=== PATIENT | male | born 1980 | race American Indian/Alaskan Native ===

== ENCOUNTER 2017-02-27 10:40 | Emergency (ER) | payer MEDICAID ==
[2017-02-27 11:38] VITALS: BP 123/70
[2017-02-27] MEDS ORDERED: NACL 0.9% 1000 ML 1,000 ML IV ONE (12:18)
[2017-02-27] MEDS ORDERED: VALIUM IV ONE (12:19)
--- NOTE | 2017-02-27 12:48 | Emergency Department Report ---
HPI - General Chief Complaint: GI Bleed Time Seen by Provider: 02/27/17 12:20 - HPI HPI: This is a 36-year-old Afro-[place] male presents to the emergency department from home with 2 different complaints. The patient has been having a 2-3 day history of bright red blood per rectum. He says it feels like it is on fire when he uses the bathroom but there is blood both with bowel movements and sometimes without. He also complains of a 2 to three-day history of pain to the entire right leg appears to start in the lower to mid back and radiates down towards the foot. It feels like it is very "tight." He says that the pain worsened significantly when he tries to stand up straight. He says he had some intermittent numbness to the right leg. He denies any problems with bowel or bladder. He has a past medical history of orthopedic surgery to the right leg from a fracture. He tried some Aleve for his discomfort without any relief. He denies any fever, dysuria, nausea, vomiting, chest pain or shortness of breath. No recent travel or sick contacts at home. He does not have a primary care doctor. ED Past Medical Hx - Past Medical History Previous Medical History?: No Hx Psychiatric Treatment: Yes (PTSD, bipolar, Schizo) - Surgical History Past Surgical History?: No - Social History Smoking Status: Never Smoker Substance Use Type: None - Medications Home Medications: Home Medications Medication Instructions Recorded Confirmed Last Taken Type No Known Home Medications [No 02/27/17 02/27/17 Unknown History Reported Home Medications] ED Review of Systems ROS: Stated complaint: BACK PAIN/RECTAL BLEED Other details as noted in HPI Comment: All other systems reviewed and negative Constitutional: denies: chills, fever Eyes: denies: eye pain, eye discharge, vision change ENT: denies: ear pain, throat pain Respiratory: denies: cough, shortness of breath, wheezing Cardiovascular: denies: chest pain, palpitations Gastrointestinal: other (rectal bleeding). denies: abdominal pain, nausea, diarrhea Genitourinary: denies: urgency, dysuria Musculoskeletal: back pain Neurological: numbness Physical Exam - Physical Exam Vital Signs: Vital Signs 02/27/17 11:38 Temperature 97.7 F Pulse Rate 80 Respiratory 18 Rate Blood Pressure 123/70 [Left] O2 Sat by Pulse 99 Oximetry Physical Exam: GENERAL: The patient is well-developed well-nourished. HEENT: Normocephalic. Atraumatic. Extraocular motions are intact. Patient has moist mucous membranes. Pupils equal reactive to light bilaterally. NECK: Supple. Trachea is midline. CHEST/LUNGS: Clear to auscultation. There is no respiratory distress noted. HEART/CARDIOVASCULAR: Regular. There is no tachycardia. There is no gallop rub or murmur. ABDOMEN: Abdomen is soft, nontender. Patient has normal bowel sounds. There is no abdominal distention. SKIN: Skin is warm and dry. RECTAL: Good rectal tone. No gross blood. Stool negative for blood on guaiac testing. NEURO: The patient is awake, alert, and oriented. The patient is cooperative. The patient has no focal neurologic deficits. The patient has normal speech. MUSCULOSKELETAL: There is no tenderness or deformity. There is no limitation range of motion. There is no evidence of acute injury. Muscle strength 5 out of 5 for the lower extremities bilaterally including EHL. PSYCH: Patient is emotionally labile. He is easily angered but also has been seen crying in the room. Unknown if his crying is secondary to his level of discomfort or psychiatric illness. ED Course Vital Signs 02/27/17 11:38 Temperature 97.7 F Pulse Rate 80 Respiratory 18 Rate Blood Pressure 123/70 [Left] O2 Sat by Pulse 99 Oximetry ED Medical Decision Making - Lab Data Result diagrams: 02/27/17 12:29 02/27/17 12:29 - Radiology Data Radiology results: report reviewed Right lower extremity venous Doppler negative for DVT. CT SCAN OF THE LUMBAR SPINE: HISTORY: Low back pain. TECHNIQUE: Contiguous 1.25 mm axial images of the lumbar spine were obtained. Sagittal and coronal reformatted images. FINDINGS: There is normal alignment of the lumbar spine. The body, pedicles and posterior ligaments appear normal. No evidence of fracture or subluxation is seen. The spinal canal appears normal. The prevertebral soft tissues appear normal. IMPRESSION: Unremarkable CT of the lumbar spine. No acute process is noted. Transcribed By: TTR Dictated By: ZUNILDA MARTINS JR, MD Electronically Authenticated By: ZUNILDA MARTINS JR, MD Signed Date/Time: 02/27/17 1257 - Medical Decision Making This is a 36-year-old male who presents to the emergency department with the complaints of pain from the lower right back down the right leg, as well as the complaint of rectal bleeding, both of which that been going on for 2-3 days. Patient's vital signs were stable throughout his ED course. The patient was cursing at the staff even as he was brought back to his room by triage. When he did not feel that he was getting fast enough attention, the patient was able to get a hold of his chart and threw it out of his room into the hallway. This was witnessed by security. After this, the patient through an empty urinal out of the room as well that was witnessed by his nurse, Brigid. Despite these inappropriate actions, I went in to see with the patient needed and to do a history and physical and assessment. The patient has tenderness to palpation along his right lower extremity as well as some tenderness to palpation to the entire lumbar back but there is no step-off deformities. Later on, a rectal exam was done, and there was no lesions or hemorrhoids seen. There was no gross blood in the stool obtained was negative for guaiac testing. Patient's labs were unremarkable did not show an etiology of his symptoms. As soon as I completed my history and physical a CT of the lumbar spine without contrast was ordered, as well as a right lower extremity venous Doppler. The CT of lumbar spine did not show any fracture, malalignment, subluxation or any acute process. The prevertebral tissues appeared normal as well. The lower extremity venous Doppler was negative for any acute DVT. The patient says that he was in excruciating pain and that his muscles felt tight so the patient was ordered IV fluid, IV placement, muscle relaxant/ Valium. However the patient says that he is severely scared of needles and would not allow the IV be placed and asked for oral medication instead. This was granted and the patient was given oral Valium and a Percocet for discomfort. He received these medications just before 2 PM. I went back and rechecked on the patient multiple times after this medication and at about 3:00 the patient says he was not getting enough relief. Because of this, I offered the patient an IM shot of morphine because it is a stronger medication in hopes of providing some relief for the patient. The patient asked if we could wait more time to see if the oral meds started working. I agreed with this plan. About 20-30 minutes later, I was called back into the room as the patient was complaining that nothing has been done for him, that we did not give any muscle relaxer, and that we're just trying to "dope" him up. I explained to him that one of the first medications given to him was a muscle relaxer. I also then let him know that if he does not want any further opiate medication that it is not a problem and by no means was I forcing any medication on to him. At this point they said that they just wanted to be discharged from the hospital. As I was preparing his discharge paperwork, both patient and his significant other complaining that they are not receiving any Flexeril or Valium. This is ironic as they were just complaining that they were having sedating meds pushed upon them. Throughout most of this patient's stay he was acting labile. While he did not appear to have any hallucinations or psychosis and did not make any suicidal or homicidal ideations, he did not appear to be someone that was a candidate to be made a 1013. However his behavior was still not appropriate. The patient was given referrals for GI as the patient may need a colonoscopy in the future for his rectal bleeding. He was given a referral for neurosurgery for his back pain and possible radiculopathy. The patient did not have any leukocytosis, any fever. He did not have any urinary retention, any numbness. He does not appear to have any signs of cauda equina, epidural abscess, cord compression syndrome or any of the emergent back conditions. - Differential Diagnosis sciatica, muscle spasm, contusion, radiculopathy Critical Care Time: No Critical care attestation.: If time is entered above; I have spent that time in minutes in the direct care of this critically ill patient, excluding procedure time. ED Disposition Clinical Impression: Rectal bleed Back pain Qualifiers: Back pain location: low back pain Chronicity: acute Back pain laterality: right Sciatica presence: with sciatica Sciatica laterality: sciatica of right side Qualified Code(s): M54.41 - Lumbago with sciatica, right side Leg pain Qualifiers: Laterality: right Qualified Code(s): M79.604 - Pain in right leg Sciatica Qualifiers: Laterality: right Qualified Code(s): M54.31 - Sciatica, right side Disposition: DISCHARGED TO HOME OR SELFCARE Is pt being admited?: No Condition: Stable Instructions: Rectal Bleeding (ED), Lumbar Radiculopathy (ED), Back Pain (ED) Additional Instructions: Please follow-up with a primary care doctor as soon as possible. I have given you a referral for a local paperback machine operator, Dr. Enciso, to follow up regarding your rectal bleeding as you may need a colonoscopy in the future. I have given you a referral for a local neurosurgeon, to follow up regarding your back pain and sciatica. Return to the emergency department with any worsening of your symptoms, problems with urinary retention, worsening rectal bleeding, inability to ambulate, numbness, or any acute distress. Referrals: PRIMARY CARE, [Primary Care Provider] - 3-5 Days MONET BECKFORD MD [Staff Physician] - 3-5 Days EDER ENCISO MD [Staff Physician] - 3-5 Days [facility] [Outside] - 3-5 Days Forms: Accompanied Note Time of Disposition: 15:28
[2017-02-27 12:50] LABS: Basophils % (Auto) 0.6 % (0.0-1.8); Eosinophils % (Auto) 1.5 % (0.0-4.3); Hematocrit 42.1 % (35.5-45.6); Hemoglobin 13.7 gm/dl (11.8-15.2); Mean Corpuscular HGB Conc 33 % (32-34); Mean Corpuscular Hemoglobin 28 pg (28-32); Mean Corpuscular Volume 87 fl (84-94); Platelet Count 221 K/mm3 (140-440); Red Blood Count 4.83 M/mm3 (3.65-5.03); Red Cell Distribution Width 14.5 % (13.2-15.2); White Blood Count 10.6 K/mm3 (4.5-11.0)
--- NOTE | 2017-02-27 13:05 | Cat Scan Report ---
CT SCAN OF THE LUMBAR SPINE: HISTORY: Low back pain. TECHNIQUE: Contiguous 1.25 mm axial images of the lumbar spine were obtained. Sagittal and coronal reformatted images. FINDINGS: There is normal alignment of the lumbar spine. The body, pedicles and posterior ligaments appear normal. No evidence of fracture or subluxation is seen. The spinal canal appears normal. The prevertebral soft tissues appear normal. IMPRESSION: Unremarkable CT of the lumbar spine. No acute process is noted.
[2017-02-27] MEDS ORDERED: VALIUM PO ONE (13:40)
[2017-02-27] MEDS ORDERED: PERCOCET 5/325 PO ONE (13:41)
[2017-02-27 13:43] LABS: Alanine Aminotransferase 32 units/L (7-56); Albumin 4.3 g/dL (3.9-5); Albumin/Globulin Ratio 1.6 %; Alkaline Phosphatase 75 units/L (35-129); Anion Gap 21 mmol/L; Blood Urea Nitrogen 14 mg/dL (9-20); Calcium 9.5 mg/dL (8.4-10.2); Carbon Dioxide 22 mmol/L (22-30); Chloride 104.7 mmol/L (98-107); Glucose 102 mg/dL (75-100); Potassium 4.5 mmol/L (3.6-5.0); Sodium 143 mmol/L (137-145)
--- NOTE | 2017-03-01 07:49 | Vascular Lab Report ---
Right Lower Extremity Venous Duplex Study: Reason for Exam: Pain of the right lower extremity. Comments on the Right: All veins visualized are freely compressible without evidence of internal echogenicity. Flow is spontaneous and phasic throughout. No evidence of acute or chronic thrombus is seen in any of the vessels visualized. Comments on the Left: A limited duplex study was done of the proximal veins of the left lower extremity. All veins visualized are freely compressible without evidence of internal echogenicity. Flow is spontaneous and phasic throughout. No evidence of acute or chronic thrombus is seen in any of the vessels visualized. Impression: No evidence of acute or chronic deep venous thrombosis in the right lower extremity.
== END 2017-02-27 16:20 | disposition home or self-care (01) ==
LOC: ED 10:40
DX: K62.5 Hemorrhage of anus and rectum (principal); M54.41 Lumbago with sciatica, right side; M79.604 Pain in right leg; M54.31 Sciatica, right side; F43.10 Post-traumatic stress disorder, unspecified; F31.9 Bipolar disorder, unspecified; F20.9 Schizophrenia, unspecified
CPT/HCPCS: 36415; 72131; 80053; 82550; 85025